=== PATIENT | female | born 1985 | race Caucasian/White ===

== ENCOUNTER 2016-06-20 16:16 | Emergency (ER) | payer OTHER, MEDICAID ==
[~2016-06-20] VITALS: Ht 157.5 cm; Wt 70.0 kg
[~2016-06-20 16:16] MED LIST: DARV PO; LORT7.5T3 PO
[2016-06-20 16:18] VITALS: BP 141/80; PULSE 71; RESP 16; TEMP 98.7; O2SAT 95
[2016-06-20] MEDS ORDERED: SODIUM CHLOR 0.9% 1000 ML INJ 1,000 ML IV SCH (18:19)
--- NOTE | 2016-06-20 18:25 | PD ---
HPI Chief Complaint: GI Complaint Time Seen by Provider: 18:00 Travel History International Travel<30 days: No Contact w/Intl Traveler<30days: No Traveled to known affect area: No History of Present Illness HPI 30-year-old female presents the emergency department with several day history of abdominal discomfort, both in the epigastric region as well as the suprapubic region. Patient states burning with urination and frequency. Patient states mild flank pain more on the right than the left. Patient has had nausea and vomiting for the past 2 days. She has had chills but no specific fever complaints. Patient denies and her last partial. Was to have weeks ago. She denies vaginal discharge at this time. Patient has no upper respiratory symptoms or cough or shortness of breath or chest pain. Patient is allergic to morphine and penicillin. PFSH Past Medical History Cancer: Yes (BONE CANCER-CHEMO IN 2006) Diminished Hearing: No Genitourinary: Yes (CERVICAL CA HX) Tetanus Vaccination: < 5 Years Influenza Vaccination: No ?: Not : 7 Para: 1 Miscarriage: 4 : 1 Past Surgical History Section: Yes (X 1) Cholecystectomy: Yes Gynecologic Surgery: Yes (CERVICAL CA) Other Surgery: Yes (TUMOR REMOVED FROM LEFT SHOULDER IN MAY 2006 - BONE CA) Social History Alcohol Use: Yes (ocassionally) Tobacco Use: No Substance Use: No Allergies-Medications (Allergen,Severity, Reaction): Coded Allergies: Penicillin (Verified Allergy, Severe, THROAT SWELLS, 06/20/16) Morphine (Verified Adverse Reaction, Severe, MORPHINE KNOCKS HER OUT, 06/20) Reported Meds & Prescriptions Reported Meds & Active Scripts Active Active Prescriptions or Reported Medications Unobtainable Review of Systems Except as stated in HPI: all other systems reviewed are Neg General / Constitutional: Positive: Chills, No: Fever Eyes: No: Visual changes HENT: No: Headaches, Vertigo, Lightheadedness, Sore Throat, Rhinitis, Rhinorrhea, Congestion, Nosebleed, Neck Stiffness, Neck Pain, Ear Discharge, Earache Cardiovascular: No: Chest Pain or Discomfort Respiratory: No: Cough, Shortness of Breath, Wheezing Gastrointestinal: Positive: Nausea, Vomiting, Abdominal Pain, No: Diarrhea Genitourinary: Positive: Urgency, Frequency, Dysuria, Flank Pain, No: Nocturia , Hematuria, Decreased Urinary Output, Pelvic Pain, Discharge, Vaginal Bleeding Musculoskeletal: No: Pain Skin: No Rash Neurologic: No: Weakness Psychiatric: No: Depression Endocrine: No: Polydipsia Hematologic/Lymphatic: No: Easy Bruising Physical Exam Narrative GENERAL: Patient appears in mild distress. SKIN: Warm and dry. Normal color. Normal turgor. HEAD: Atraumatic. Normocephalic. EYES: Pupils equal and round. No scleral icterus. No injection or drainage. ENT: No nasal bleeding or discharge. Mucous membranes pink and moist. Pharynx is normal. Airway is patent. NECK: Trachea midline. No JVD. Supple and nontender. CARDIOVASCULAR: Regular rate and rhythm. No murmurs gallops or rubs. RESPIRATORY: No accessory muscle use. Clear to auscultation. Breath sounds equal bilaterally. GASTROINTESTINAL: Abdomen soft, mild generalized tenderness with palpation, nondistended. No point tenderness guarding or rebound. Hepatic and splenic margins not palpable. Mild right CVA tenderness. MUSCULOSKELETAL: Extremities without clubbing, cyanosis, or edema. No obvious deformities. NEUROLOGICAL: Awake and alert. No obvious cranial nerve deficits. Motor grossly within normal limits. Five out of 5 muscle strength in the arms and legs. Normal speech. PSYCHIATRIC: Appropriate mood and affect; insight and judgment normal. Data Data Last Documented VS Vital Signs Date Time Temp Pulse Resp B/P Pulse Ox O2 Delivery O2 Flow Rate FiO2 06/20/16 18:31 16 99 Room Air 06/20/16 16:18 98.7 71 141/80 Orders Complete Blood Count With Diff (06/20/16 18:19) Comprehensive Metabolic Panel (06/20/16 18:19) Lipase (06/20/16 18:19) Lactic Acid (06/20/16 18:19) Urinalysis - C+S If Indicated (06/20/16 18:19) Abdomen, Flat & Upright (06/20/16 ) Iv Access Insert/Monitor (06/20/16 18:19) Ecg Monitoring (06/20/16 18:19) Oximetry (06/20/16 18:19) NPO (06/20/16 18:19) Ondansetron Inj (Zofran Inj) (06/20/16 18:30) Sodium Chlor 0.9% 1000 Ml Inj (Ns 1000 M (06/20/16 18:19) Sodium Chloride 0.9% Flush (Ns Flush) (06/20/16 18:30) Ketorolac Inj (Toradol Inj) (06/20/16 18:30) Ed Urine Pregnancytest Poc (06/20/16 18:19) Urine Culture (06/20/16 18:30) Ceftriaxone Inj (Rocephin Inj) (06/20/16 20:00) Labs Laboratory Tests Test 06/20/16 18:30 White Blood Count 8.2 TH/MM3 Red Blood Count 4.66 MIL/MM3 Hemoglobin 13.4 GM/DL Hematocrit 40.6 % Mean Corpuscular Volume 87.2 FL Mean Corpuscular Hemoglobin 28.7 PG Mean Corpuscular Hemoglobin 33.0 % Concent Red Cell Distribution Width 14.0 % Platelet Count 194 TH/MM3 Mean Platelet Volume 9.6 FL Neutrophils (%) (Auto) 65.8 % Lymphocytes (%) (Auto) 25.4 % Monocytes (%) (Auto) 7.8 % Eosinophils (%) (Auto) 0.5 % Basophils (%) (Auto) 0.5 % Neutrophils # (Auto) 5.4 TH/MM3 Lymphocytes # (Auto) 2.1 TH/MM3 Monocytes # (Auto) 0.6 TH/MM3 Eosinophils # (Auto) 0.0 TH/MM3 Basophils # (Auto) 0.0 TH/MM3 CBC Comment DIFF FINAL Differential Comment Urine Color YELLOW Urine Turbidity CLOUDY Urine pH 6.0 Urine Specific [place] 1.023 Urine Protein 30 mg/dL Urine Glucose (UA) TRACE mg/dL Urine Ketones NEG mg/dL Urine Occult Blood TRACE Urine Nitrite POS Urine Bilirubin NEG Urine Urobilinogen LESS THAN 2.0 MG/DL Urine Leukocyte Esterase LARGE Urine RBC 2 /hpf Urine WBC LESS THAN 1 /hpf Urine Squamous Epithelial <1 /hpf Cells Urine Bacteria MOD /hpf Microscopic Urinalysis Comment CULTURE INDICATED Sodium Level 142 MEQ/L Potassium Level 3.9 MEQ/L Chloride Level 106 MEQ/L Carbon Dioxide Level 30.8 MEQ/L Anion Gap 5 MEQ/L Blood Urea Nitrogen 5 MG/DL Creatinine 0.77 MG/DL Estimat Glomerular Filtration 87 ML/MIN Rate Random Glucose 96 MG/DL Lactic Acid Level 1.2 mmol/L Calcium Level 9.4 MG/DL Total Bilirubin 0.2 MG/DL Aspartate Amino Transf 11 U/L (AST/SGOT) Alanine Aminotransferase 20 U/L (ALT/SGPT) Alkaline Phosphatase 55 U/L Total Protein 7.1 GM/DL Albumin 3.6 GM/DL Lipase 144 U/L MDM Medical Decision Making Medical Screen Exam Complete: Yes Emergency Medical Condition: Yes Differential Diagnosis Nausea and vomiting. Abdominal pain. Urinary tract infection. Pyelonephritis. . Gastroenteritis. Appendicitis Narrative Course Patient is medically stable at time of exam. Labs ordered including CBC, CMP, lactic acid, lipase, urinalysis, urine test. Abdomen and pelvis flat and upright films are obtained. IV access is obtained patient is given 4 mg Zofran IV as well as 30 mg Toradol IV. Patient is given 1000 mL's normal saline bolus. 2000 hrs. labs come back showing normal CBC, CMP is normal, lactic acid is negative. Patient is not . Urinalysis very suggestive for UTI. Patient is given Rocephin 1 g IV and monitored for 30 minutes. Urine culture is pending. Patient wiil be discharged on Keflex 500 mg 3 times a day 7 days. Patient is given Pyridium 100 mg 3 times a day when necessary #15. Patient is given Zofran 4 mg every 8 hours when necessary nausea #15. Patient follow-up with her primary care physician as discussed. Patient can return to emergency department as needed. Diagnosis Primary Impression: Urinary tract infection Qualified Code: N30.00 - Acute cystitis without hematuria Additional Impression: Nausea & vomiting Qualified Code: R11.2 - Non-intractable vomiting with nausea, unspecified vomiting type Referrals: [facility] Patient Instructions: General Instructions Additional Instructions: Urine culture is pending. Patient wiil be discharged on Keflex 500 mg 3 times a day 7 days. Patient is given Pyridium 100 mg 3 times a day when necessary #15. Patient is given Zofran 4 mg every 8 hours when necessary nausea #15. Patient follow-up with her primary care physician as discussed. Patient can return to emergency department as needed. Med/Other Pt SpecificInfo: Prescription(s) given Scripts No Active Prescriptions or Reported Meds Disposition: DISCHARGE HOME Condition: Stable Kory Rangel Jun 20, 2016 18:25
[2016-06-20] MEDS ORDERED: KETOROLAC TROMETHAMINE 30 MG/ML (IVP) VIAL IVP ONE (18:30)
[2016-06-20] MEDS ORDERED: ONDANSETRON HCL 4 MG/2 ML VIAL IVP ONE (18:30)
[2016-06-20] MEDS ORDERED: SODIUM CHLORIDE 0.9% FLUSH 10 ML FLUSH IV FLUSH PRN (18:30)
[2016-06-20 18:31] VITALS: RESP 16; O2SAT 99
--- NOTE | 2016-06-20 18:49 | RADRPT ---
EXAM DATE/TIME: 06/20/2016 18:44 [facility] COMPARISON: No previous studies available for comparison. INDICATIONS : Abdomen pain. MEDICAL HISTORY : None. SURGICAL HISTORY : Cholecystectomy. section. ENCOUNTER: Initial ACUITY: 2 days PAIN SCORE: 9/10 LOCATION: Bilateral upper quadrant and lower quadrant. FINDINGS: Supine and upright views of the abdomen were performed. The surgical clips are seen from previous ch olecystectomy. The abdominal bowel gas pattern is normal. No air fluid levels are seen. No abnormal masses, calcifications, or organomegaly is seen. The visualized lower lungs are clear. No evidence of free intraperitoneal gas. The osseous structures are unremarkable. CONCLUSION: Nonspecific, benign abdomen or pelvis. Gualberto Cleveland MD on June 20, 2016 at 18:47 Board Certified Radiologist. This report was verified electronically.
[2016-06-20 18:52] LABS: AUTOMATED NEUTROPHIL # 5.4 TH/MM3 (1.8-7.7); BASOPHIL % 0.5 % (0.0-2.0); EOSINOPHIL % 0.5 % (0.0-4.0); HEMATOCRIT 40.6 % (35.0-46.0); HEMO FLAGS DIFF FINAL; LYMPH % 25.4 % (9.0-44.0); LYMPHOCYTE # 2.1 TH/MM3 (1.0-4.8); MEAN CELL VOLUME 87.2 FL (80.0-100.0); MEAN CORPUSCULAR HEMOGLOBIN 28.7 PG (27.0-34.0); MONO % 7.8 % (0.0-8.0); NEUT % 65.8 % (16.0-70.0); PLATELET COUNT 194 TH/MM3 (150-450); RED BLOOD COUNT 4.66 MIL/MM3 (4.00-5.30); WHITE BLOOD COUNT 8.2 TH/MM3 (4.0-11.0)
[2016-06-20 19:07] LABS: ANION GAP 5 MEQ/L (5-15); AST (GOT) 11 U/L (15-37); BICARBONATE 30.8 MEQ/L (21.0-32.0); BLOOD UREA NITROGEN 5 MG/DL (7-18); CHLORIDE 106 MEQ/L (98-107); GLOMERULAR FILTRATION RATE 87 ML/MIN (>89); POTASSIUM 3.9 MEQ/L (3.5-5.1); SODIUM (NA) 142 MEQ/L (136-145)
[2016-06-20 19:10] LABS: ALKALINE PHOSPHATASE 55 U/L (45-117); ALT (GPT) 20 U/L (10-53); TOTAL BILIRUBIN ADULT 0.2 MG/DL (0.2-1.0)
[2016-06-20 19:45] LABS: BACTERIA, URINE MOD /hpf; BLOOD, URINE TRACE (NEG); COMMENT (UR) CULTURE INDICATED; CULTURE IF INDICATED CULTURE INDICATED; GLUCOSE,URINE TRACE mg/dL (NEG); KETONE, URINE NEG (NEG); SQUAMOUS EPITHELIAL CELL URINE <1 /hpf (0-5); URINE COLOR YELLOW (YELLW/STRAW)
[2016-06-20 19:47] LABS: NITRITE,URINE POS (NEG)
[2016-06-20] MEDS ORDERED: cefTRIAXone INJ 1,000 MG in SODIUM CHLORIDE 0.9% INJ 100 ML IV ONE (20:00)
[2016-06-20] MEDS ORDERED: ZOFR4TAB3 SL (20:08)
[2016-06-20] MEDS ORDERED: PHEN0.4T PO (20:08)
[2016-06-20] MEDS ORDERED: CEPH-460 PO (20:08)
[2016-06-20 20:54] VITALS: BP 110/66; PULSE 60; RESP 18; O2SAT 98
[2016-06-20 21:58] VITALS: BP 114/68
== END 2016-06-20 22:18 | disposition home or self-care (01) ==
LOC: NEPC 16:16
DX: N30.00 Acute cystitis without hematuria (principal); R11.2 Nausea with vomiting, unspecified; B96.20 Unspecified Escherichia coli [E. coli] as the cause of diseases classified elsewhere; Z85.830 Personal history of malignant neoplasm of bone; Z85.41 Personal history of malignant neoplasm of cervix uteri
CPT/HCPCS: 74020; 80053; 81001; 83605; 83690; 84703; 85025; 87077; 87086; 87186; 96374; 96375; 99284; J0696; J1885; J2405; J7030

== ENCOUNTER 2017-03-04 08:28 | Emergency (ER) | payer OTHER, MEDICAID ==
[~2017-03-04 08:28] MED LIST changes: +CEPH-460 PO; -DARV PO; -LORT7.5T3 PO; +PHEN0.4T PO; +ZOFR4TAB3 SL
[2017-03-04 08:30] VITALS: BP 138/76; PULSE 88; RESP 18; TEMP 98.2; O2SAT 98
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
== END 2017-03-04 10:10 | disposition home or self-care (01) ==
LOC: PHEFT 08:28
DX: M54.2 Cervicalgia (principal); V43.52XA Car driver injured in collision with other type car in traffic accident, initial encounter
CPT/HCPCS: 72125; 99284

== ENCOUNTER 2017-05-06 14:00 | Emergency (ER) | payer MEDICAID, OTHER ==
[~2017-05-06] VITALS: Ht 162.6 cm; Wt 87.0 kg
[2017-05-06 14:15] VITALS: BP 141/105; PULSE 101; RESP 16; TEMP 98.6; O2SAT 98
--- NOTE | 2017-05-06 16:25 | PD ---
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 This patient complains of having a miscarriage. At least that is what she thinks. She was laid on her last period and took a home test that was positive a couple days ago. Yesterday she had vaginal bleeding. Today she took a home test and it was negative. She had a bit of bleeding today as well. She is not having pelvic pain or presyncopal symptoms. Also complains of runny nose congestion cough for 3 days. Symptoms severity is moderate. No alleviating factors. No exacerbating factors. PFSH Past Medical History Cancer: Yes (BONE CANCER-CHEMO IN 2006) Diminished Hearing: No Genitourinary: Yes (CERVICAL CA HX) Influenza Vaccination: No ?: Not : 7 Para: 1 Miscarriage: 4 : 1 Past Surgical History Section: Yes (X 1) Cholecystectomy: Yes Gynecologic Surgery: Yes (CERVICAL CA) Other Surgery: Yes (TUMOR REMOVED FROM LEFT SHOULDER IN MAY 2006 - BONE CA) Social History Alcohol Use: Yes (ocassionally) Tobacco Use: No Substance Use: No Allergies-Medications (Allergen,Severity, Reaction): Coded Allergies: penicillin G (Unverified Allergy, Severe, THROAT SWELLS, 05/06/17) morphine (Unverified Adverse Reaction, Severe, MORPHINE KNOCKS HER OUT, 05/06/17) Reported Meds & Prescriptions Reported Meds & Active Scripts Active No Active Prescriptions or Reported Medications Review of Systems General / Constitutional: No: Fever Eyes: No: Visual changes HENT: Positive: Rhinorrhea, Congestion, No: Headaches Cardiovascular: No: Chest Pain or Discomfort Respiratory: Positive: Cough, No: Shortness of Breath Gastrointestinal: No: Abdominal Pain Genitourinary: Positive: Vaginal Bleeding, No: Dysuria Musculoskeletal: No: Pain Skin: No Rash Neurologic: No: Weakness Psychiatric: No: Depression Endocrine: No: Polydipsia Hematologic/Lymphatic: No: Easy Bruising Physical Exam Narrative GENERAL: Well-nourished, well-developed patient in no apparent distress. SKIN: Focused skin assessment reveals no rash and nodules. Skin is Warm and dry. HEAD: Atraumatic. Normocephalic. EYES: Pupils equal and round. No scleral icterus. No injection or drainage. ENT: No nasal bleeding or discharge. Mucous membranes pink and moist. NECK: Trachea midline. No JVD. CARDIOVASCULAR: Regular rate and rhythm. No murmur appreciated. RESPIRATORY: No accessory muscle use. Clear to auscultation. Breath sounds equal bilaterally. GASTROINTESTINAL: Abdomen soft, non-tender, nondistended. Hepatic and splenic margins not palpable. MUSCULOSKELETAL: No obvious deformities. No clubbing. No cyanosis. No edema. NEUROLOGICAL: Awake and alert. No obvious cranial nerve deficits. Motor grossly within normal limits. Normal speech. PSYCHIATRIC: Appropriate mood and affect; insight and judgment normal. Data Data Last Documented VS Vital Signs Date Time Temp Pulse Resp B/P (MAP) Pulse Ox O2 Delivery O2 Flow Rate FiO2 05/06/17 15:37 18 05/06/17 14:15 98.6 101 141/105 (117) 98 Orders Orders Complete Blood Count With Diff (05/06/17 16:21) Beta Hcg (Quant/Titer) (05/06/17 16:21) Labs Laboratory Tests Test 05/06/17 16:40 White Blood Count 5.4 TH/MM3 Red Blood Count 4.56 MIL/MM3 Hemoglobin 13.2 GM/DL Hematocrit 39.1 % Mean Corpuscular Volume 85.8 FL Mean Corpuscular Hemoglobin 29.0 PG Mean Corpuscular Hemoglobin Concent 33.8 % Red Cell Distribution Width 13.5 % Platelet Count 169 TH/MM3 Mean Platelet Volume 8.4 FL Neutrophils (%) (Auto) 62.8 % Lymphocytes (%) (Auto) 21.9 % Monocytes (%) (Auto) 9.8 % Eosinophils (%) (Auto) 4.7 % Basophils (%) (Auto) 0.8 % Neutrophils # (Auto) 3.4 TH/MM3 Lymphocytes # (Auto) 1.2 TH/MM3 Monocytes # (Auto) 0.5 TH/MM3 Eosinophils # (Auto) 0.3 TH/MM3 Basophils # (Auto) 0.0 TH/MM3 CBC Comment DIFF FINAL Differential Comment Human Chorionic Gonadotropin, Quant LESS THAN 1 MIU/ML MDM Medical Decision Making Medical Screen Exam Complete: Yes Emergency Medical Condition: Yes Medical Record Reviewed: Yes Differential Diagnosis Ectopic, dysfunctional uterine bleeding, threatened , miscarriage Narrative Course I have reviewed the patient's electronic medical record. I reviewed her prior lab and blood bank studies. She is blood type A positive so will not need RhoGAM. 1624: Examined her and ordered lab studies 1713: CBC is normal and beta hCG is negative Repeat evaluation reveals she is feeling fine other than some minor viral type flu-type syndrome Supportive care discussed and gradual resolution is expected. I do not believe that she had a miscarriage. I don't think her beta titer would've dropped to 1 in 2 days Diagnosis Primary Impression: Vaginal bleeding Additional Impression: Flu syndrome Additional Instructions: The patient was advised to follow up with their physician and return if they worsen. Med/Other Pt SpecificInfo: Other Scripts No Active Prescriptions or Reported Meds Disposition: 01 DISCHARGE HOME Condition: Stable Lenin Medina MD May 06, 2017 16:25
[2017-05-06 16:47] LABS: AUTOMATED NEUTROPHIL # 3.4 TH/MM3 (1.8-7.7); BASOPHIL % 0.8 % (0.0-2.0); EOSINOPHIL # 0.3 TH/MM3 (0-0.4); EOSINOPHIL % 4.7 % (0.0-4.0); HEMATOCRIT 39.1 % (35.0-46.0); HEMOGLOBIN 13.2 GM/DL (11.6-15.3); LYMPH % 21.9 % (9.0-44.0); LYMPHOCYTE # 1.2 TH/MM3 (1.0-4.8); MEAN CELL VOLUME 85.8 FL (80.0-100.0); MEAN CORPUSCULAR HGB CONC 33.8 % (32.0-36.0); MEAN PLATELET VOLUME 8.4 FL (7.0-11.0); MONO % 9.8 % (0.0-8.0); MONOCYTE # 0.5 TH/MM3 (0-0.9); NEUT % 62.8 % (16.0-70.0); PLATELET COUNT 169 TH/MM3 (150-450); RED BLOOD COUNT 4.56 MIL/MM3 (4.00-5.30); RED CELL DISTRIBUTION WIDTH 13.5 % (11.6-17.2); WHITE BLOOD COUNT 5.4 TH/MM3 (4.0-11.0)
== END 2017-05-06 17:42 | disposition home or self-care (01) ==
LOC: PHED 14:00
DX: N93.9 Abnormal uterine and vaginal bleeding, unspecified (principal); R09.89 Other specified symptoms and signs involving the circulatory and respiratory systems; R05 Cough; Z85.41 Personal history of malignant neoplasm of cervix uteri; Z85.830 Personal history of malignant neoplasm of bone; Z88.0 Allergy status to penicillin; Z88.5 Allergy status to narcotic agent
CPT/HCPCS: 84702; 85025; 99283

== ENCOUNTER 2017-07-12 21:18 | Emergency (ER) | payer MEDICAID ==
[~2017-07-12] VITALS: Ht 160 cm; Wt 88.5 kg
[2017-07-12 21:30] VITALS: BP 133/79; PULSE 65; RESP 18; TEMP 98.6; O2SAT 97
[2017-07-12 23:12] VITALS: BP 124/73; PULSE 66; RESP 18; O2SAT 99
[2017-07-12] MEDS ORDERED: SODIUM CHLORID 0.9% 500 ML INJ 500 ML IV ONE (23:30)
[2017-07-12] MEDS ORDERED: ASPIRIN 325 MG TAB PO ONE (23:30)
[2017-07-12] MEDS ORDERED: ACETAMINOPHEN/HYDROcodone 325 MG/5 MG TAB PO ONE (23:30)
[2017-07-12] MEDS ORDERED: MORPHINE SULFATE 4 MG/ML INJ IV PUSH ONE (23:30)
[2017-07-12 23:58] VITALS: O2SAT 98
[2017-07-13 00:07] VITALS: BP 123/79; PULSE 61; RESP 16; O2SAT 98
--- NOTE | 2017-07-13 00:14 | PD ---
HPI Chief Complaint: Chest Pain Time Seen by Provider: 23:15 Travel History International Travel<30 days: No Contact w/Intl Traveler<30days: No Traveled to known affect area: No History of Present Illness HPI 32-year-old female arrives complaining of chest pain. It started while she was wrestling with her children and significant other place weight. She also has pain in the region of the left scapula. The pain initially 3-4/10 and went away after brief period. Then came back and was much more severe. The patient took a bath and afterwards it felt better for a second or 2 and then again returned and was severe. The patient reports pleuritic chest pain. There is radiation of pain down the arm. No cough or fever. No similar prior episode. He called his chest pain as tightness. Patient reports a history of DVT however has been unable follow up with primary care to establish anticoagulation regimen. PFSH Past Medical History Cancer: Yes (BONE CANCER-CHEMO IN 2006) Diminished Hearing: No Genitourinary: Yes (CERVICAL CA HX) Medical other: Yes (PE) Tetanus Vaccination: < 5 Years Influenza Vaccination: No ?: Not LMP: 07/04/17 : 7 Para: 1 Miscarriage: 4 : 1 Past Surgical History Section: Yes (X 1) Cholecystectomy: Yes Gynecologic Surgery: Yes (CERVICAL CA) Other Surgery: Yes (TUMOR REMOVED FROM LEFT SHOULDER IN MAY 2006 - BONE CA) Social History Alcohol Use: Yes (ocassionally) Tobacco Use: No Substance Use: No Allergies-Medications (Allergen,Severity, Reaction): Coded Allergies: penicillin G (Unverified Allergy, Severe, THROAT SWELLS, 07/12/17) Reported Meds & Prescriptions Reported Meds & Active Scripts Active No Active Prescriptions or Reported Medications Review of Systems Except as stated in HPI: all other systems reviewed are Neg General / Constitutional: No: Fever Physical Exam Narrative GENERAL: 32-year-old female pleasant well-nourished well-developed Vital Signs Date Time Temp Pulse Resp B/P (MAP) Pulse Ox O2 Delivery O2 Flow Rate FiO2 07/13/17 00:07 61 16 123/79 (94) 98 Room Air 07/12/17 23:58 98 Room Air 07/12/17 23:58 98 Room Air 07/12/17 23:12 66 18 99 Room Air 07/12/17 23:12 66 18 124/73 (90) 99 Room Air 07/12/17 21:30 98.6 65 18 133/79 (97) 97 SKIN: Warm and dry. HEAD: Atraumatic. Normocephalic. EYES: Pupils equal and round. No scleral icterus. No injection or drainage. ENT: No nasal bleeding or discharge. Mucous membranes pink and moist. NECK: Trachea midline. No JVD. CARDIOVASCULAR: Regular rate and rhythm. Minimal tenderness to palpation overlying the paraspinal musculature just medial to the medial margin of the scapula on the left side. RESPIRATORY: No accessory muscle use. Clear to auscultation. Breath sounds equal bilaterally. GASTROINTESTINAL: Abdomen soft, non-tender, nondistended. Hepatic and splenic margins not palpable. MUSCULOSKELETAL: Extremities without clubbing, cyanosis, or edema. No obvious deformities. NEUROLOGICAL: Awake and alert. No obvious cranial nerve deficits. Motor grossly within normal limits. Five out of 5 muscle strength in the arms and legs. Normal speech. PSYCHIATRIC: Appropriate mood and affect; insight and judgment normal. Data Data Last Documented VS Vital Signs Date Time Temp Pulse Resp B/P (MAP) Pulse Ox O2 Delivery O2 Flow Rate FiO2 07/13/17 00:59 62 16 102/61 (75) 96 Room Air 07/12/17 21:30 98.6 Orders Orders Electrocardiogram (07/12/17 ) Electrocardiogram (07/12/17 23:30) Basic Metabolic Panel (Bmp) (07/12/17 23:30) Ckmb (Isoenzyme) Profile (07/12/17 23:30) Complete Blood Count With Diff (07/12/17 23:30) Magnesium (Mg) (07/12/17 23:30) Prothrombin Time / Inr (Pt) (07/12/17 23:30) Act Partial Throm Time (Ptt) (07/12/17 23:30) Troponin I (07/12/17 23:30) Ecg Monitoring (07/12/17 23:30) Iv Access Insert/Monitor (07/12/17 23:30) Oximetry (07/12/17 23:30) Oxygen Administration (07/12/17 23:30) Aspirin (Aspirin) (07/12/17 23:30) Morphine Inj (Morphine Inj) (07/12/17 23:30) Sodium Chlorid 0.9% 500 Ml Inj (Ns 500 M (07/12/17 23:30) Acetamin-Hydrocod 325-5 Mg ([place] 5-325 (07/12/17 23:30) Ct Pulmonary Angiogram (07/13/17 00:21) Ed Discharge Order (07/13/17 01:08) Iohexol 350 Inj (Omnipaque 350 Inj) (07/13/17 01:12) Labs Laboratory Tests Test 07/12/17 23:54 White Blood Count 8.3 TH/MM3 Red Blood Count 4.84 MIL/MM3 Hemoglobin 13.7 GM/DL Hematocrit 41.7 % Mean Corpuscular Volume 86.2 FL Mean Corpuscular Hemoglobin 28.4 PG Mean Corpuscular Hemoglobin Concent 33.0 % Red Cell Distribution Width 14.1 % Platelet Count 203 TH/MM3 Mean Platelet Volume 9.0 FL Neutrophils (%) (Auto) 62.6 % Lymphocytes (%) (Auto) 25.4 % Monocytes (%) (Auto) 4.2 % Eosinophils (%) (Auto) 6.4 % Basophils (%) (Auto) 1.4 % Neutrophils # (Auto) 5.3 TH/MM3 Lymphocytes # (Auto) 2.1 TH/MM3 Monocytes # (Auto) 0.3 TH/MM3 Eosinophils # (Auto) 0.5 TH/MM3 Basophils # (Auto) 0.1 TH/MM3 CBC Comment DIFF FINAL Differential Comment Prothrombin Time 10.0 SEC Prothromb Time International Ratio 1.0 RATIO Activated Partial Thromboplast Time 26.4 SEC Blood Urea Nitrogen 7 MG/DL Creatinine 0.57 MG/DL Random Glucose 91 MG/DL Calcium Level 9.2 MG/DL Magnesium Level 2.0 MG/DL Sodium Level 140 MEQ/L Potassium Level 3.7 MEQ/L Chloride Level 106 MEQ/L Carbon Dioxide Level 27.3 MEQ/L Anion Gap 7 MEQ/L Estimat Glomerular Filtration Rate 122 ML/MIN Total Creatine Kinase 95 U/L Troponin I LESS THAN 0.02 NG/ML MDM Medical Decision Making Medical Screen Exam Complete: Yes Emergency Medical Condition: Yes Medical Record Reviewed: Yes Differential Diagnosis NSTEMI, unstable angina, coronary vasospasm, PE, PTX, aortic dissection, pericarditis, myocarditis, endocarditis, PNA, esophageal disease, aneurysm, musculoskeletal etiologies, anxiety, cocaine/sympathomimetic abuse Narrative Course CBC & BMP Diagram 07/12/17 23:54 Calcium Level 9.2, Magnesium Level 2.0 Tn < 0.02 EKG shows a sinus rhythm with a rate of 67, nonspecific ST changes noted in nonspecific leads Last Impressions CT Angiography 07/13/17 0021 Signed Impressions: Service Date/Time: Thursday, July 13, 2017 00:35 - CONCLUSION: No pulmonary embolus or other acute abnormality. Gualberto Jenkins MD The patient is resting comfortably and feels better, is alert and in no distress. The patients results and examination findings were discussed. The repeat examination is unremarkable and benign. The history, exam, diagnostic testing, and current condition do not suggest any significant pathology to warrant further testing, continued ED treatment, admission, or surgical evaluation at this point. The vital signs have been stable. The patient does not have uncontrollable pain, intractable vomiting, or other significant symptoms. The patient's condition is stable and appropriate for discharge. The patient will pursue further outpatient evaluation with a primary care physician or other designated or consulting physician as indicated in the discharge instructions. The patient expressed understanding and was agreeable with this plan. Diagnosis Primary Impression: Chest pain Qualified Codes: R07.9 - Chest pain, unspecified Additional Impression: Pain of left scapula Med/Other Pt SpecificInfo: Other Scripts No Active Prescriptions or Reported Meds Disposition: 01 DISCHARGE HOME Condition: Stable Hiram Adhikari MD Jul 13, 2017 00:14
[2017-07-13 00:18] LABS: AUTOMATED NEUTROPHIL # 5.3 TH/MM3 (1.8-7.7); BASOPHIL # 0.1 TH/MM3 (0-0.2); BASOPHIL % 1.4 % (0.0-2.0); EOSINOPHIL # 0.5 TH/MM3 (0-0.4); EOSINOPHIL % 6.4 % (0.0-4.0); HEMATOCRIT 41.7 % (35.0-46.0); HEMOGLOBIN 13.7 GM/DL (11.6-15.3); LYMPH % 25.4 % (9.0-44.0); LYMPHOCYTE # 2.1 TH/MM3 (1.0-4.8); MEAN CELL VOLUME 86.2 FL (80.0-100.0); MEAN CORPUSCULAR HEMOGLOBIN 28.4 PG (27.0-34.0); MONO % 4.2 % (0.0-8.0); MONOCYTE # 0.3 TH/MM3 (0-0.9); NEUT % 62.6 % (16.0-70.0); PLATELET COUNT 203 TH/MM3 (150-450); RED BLOOD COUNT 4.84 MIL/MM3 (4.00-5.30); RED CELL DISTRIBUTION WIDTH 14.1 % (11.6-17.2); WHITE BLOOD COUNT 8.3 TH/MM3 (4.0-11.0)
[2017-07-13 00:27] LABS: CHLORIDE 106 MEQ/L (98-107); SODIUM (NA) 140 MEQ/L (136-145)
[2017-07-13 00:30] LABS: BICARBONATE 27.3 MEQ/L (21.0-32.0); CALCIUM 9.2 MG/DL (8.5-10.1)
[2017-07-13 00:31] LABS: BLOOD UREA NITROGEN 7 MG/DL (7-18); GLUCOSE,RANDOM 91 MG/DL (74-106)
[2017-07-13 00:34] LABS: CREATININE 0.57 MG/DL (0.50-1.00); GLOMERULAR FILTRATION RATE 122 ML/MIN (>89)
[2017-07-13 00:39] LABS: TROPONIN I LESS THAN 0.02 NG/ML (0.02-0.05)
[2017-07-13 00:59] VITALS: BP 102/61; PULSE 62; RESP 16; O2SAT 96
--- NOTE | 2017-07-13 01:05 | RADRPT ---
EXAM DATE/TIME: 07/13/2017 00:35 [facility] COMPARISON: No previous studies available for comparison. INDICATIONS : Left chest pain. IV CONTRAST: 75 cc Omnipaque 350 (iohexol) IV RADIATION DOSE: 19.60 CTDIvol (mGy) MEDICAL HISTORY : Carcinoma, bone. SURGICAL HISTORY : None. ENCOUNTER: Initial ACUITY: 3 days PAIN SCALE: 8/10 LOCATION: Left chest TECHNIQUE: Volumetric scanning of the chest was performed using a pulmonary embolism protocol MIP images were re constructed. Using automated exposure control and adjustment of the mA and/or kV according to patien t size, radiation dose was kept as low as reasonably achievable to obtain optimal diagnostic quality images. DICOM format image data is available electronically for review and comparison. Follow-up recommendations for detected pulmonary nodules are based at a minimum on nodule size and pa tient risk factors according to Fleischner Society Guidelines. FINDINGS: PULMONARY ARTERIES: No filling defects are seen in the pulmonary arteries through the segmental level. LUNGS: There is no consolidation or pneumothorax . No concerning pulmonary nodule is visualized. PLEURAE: There is no pleural thickening or pleural effusion. MEDIASTINUM: There is good visualization of the great vessels of the middle mediastinum. No evidence of mediastin al or hilar adenopathy/mass. MUSCULOSKELETAL: Within normal limits for patient age. MISCELLANEOUS: The visualized upper abdominal organs demonstrate no acute abnormality. CONCLUSION: No pulmonary embolus or other acute abnormality. Gualberto Jenkins MD on July 13, 2017 at 1:02 Board Certified Radiologist. This report was verified electronically.
[2017-07-13] MEDS ORDERED: IOHEXOL 350 MG/ML 10 ML VIAL (for RAD DIAG) IVCONTRAST ONE (01:12)
[2017-07-13 01:48] VITALS: BP 108/60
--- NOTE | 2017-07-13 10:33 | EKG ---
Date Performed: 07/12/2017 Time Performed: 21:27:47 PTAGE: 32 years EKG: Sinus rhythm WITH MARKED SINUS ARRHYTHMIA BORDERLINE ECG Since the PREVIOUS TRACING , no significant change noted PREVIOUS TRACIN12/19/2007 23.51 DOCTOR: Andrade Humphrey Interpretating Date/Time 07/13/2017 10:30:19
== END 2017-07-13 01:52 | disposition home or self-care (01) ==
LOC: PHED 21:18
DX: R07.89 Other chest pain (principal); M25.512 Pain in left shoulder; I49.9 Cardiac arrhythmia, unspecified; Z86.718 Personal history of other venous thrombosis and embolism; Z86.711 Personal history of pulmonary embolism; Z88.0 Allergy status to penicillin
CPT/HCPCS: 71275; 80048; 82550; 83735; 84484; 85025; 85610; 85730; 93005; 96361; 96374; 99284; J2270; J7040; Q9967